=== PATIENT | female | born 1940 | race Caucasian/White ===

== ENCOUNTER 2023-05-27 07:34 | Outpatient (AMB) | payer OTHER, SELFPAY ==
--- NOTE | 2023-05-27 07:51 | A.OFFPC_ITS ---
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 Required: No Accompanied by: Self / Same As Patient Allergies penicillin G Allergy (Mild, Verified 05/27/23 07:55) mouth sores Medication List - Last Reconciled 05/27/23 by Yaneth Morataya MD apixaban (Eliquis) 5 mg PO BID atorvastatin (Lipitor) 40 mg PO BEDTIME cholecalciferol (vitamin D3) 50 mcg PO DAILY sertraline 100 mg PO DAILY verapamil ER 180 mg PO DAILY Tobacco use date assessed: 05/27/23 Fall risk assessment: 2 + Falls in past year Last assessed Fall Risk: 05/27/23 Dental Screening Dental Screen Date: 05/27/23 Did you have a dental visit in the last 12 months?: Yes Did you have a dental problem in the last 6 months where you did not have access to dental care?: No Was dental information given to patient?: Patient has dentist HPI NPV-requesting phy HPI Details Pt presents for NPE. Past medical history includes paroxysmal AFib and hyperlipidemia. Patient moved from [place] a year ago. She was recently hospitalized at [facility] for noncardiac chest pain with negative cardiac workup. Patient complains bilateral knee pain and stiffness and poor balance. She started taking classes at [employer] to improve her balance. [facility] Surgical History (Updated 05/27/23 @ 08:13 by Yaneth Morataya MD) S/P cataract surgery Family History Father No problems noted. Mother No problems noted. Social History Household Members Other:: , lives alone, 2 daughters (in [facility]), Housing: House Alcohol intake: current Alcohol intake frequency: former alcohol drinker Patient Tobacco Use Status: Former Tobacco user Quit Date: 17 yrs ago Years Smoked: 40 e-Cigarette/Vaping Use: Never Used service: No Current occupational status: retired Current occupational exposures/hazards: No Cognitive needs: No Hearing needs: No Vision needs: Yes Questionnaire PHQ-9 Over the last 2 weeks, how often have you been bothered by any of the following problems? 1. Little interest or pleasure in doing things: not at all 2. Feeling down, depressed, or hopeless: not at all 3. Trouble falling or staying asleep, or sleeping too much: not at all 4. Feeling tired or having little energy: not at all 5. Poor appetite or overeating: several days 6. Feeling bad about yourself - or that you are a failure or have let yourself or your family down: not at all 7. Trouble concentrating on things, such as reading the newspaper or watching television: not at all 8. Moving or speaking so slowly that other people could have noticed. Or the opposite - being so fidgety or restless that you have been moving around a lot more than usual: not at all 9. Thoughts that you would be better off or of hurting yourself in some way: not at all Total score: 1 Depression Screening Interpretation: Negative Depression Screening Done: Yes Source: Developed by Drs. Ramin Avina, Lotus Huynh, Sanchez Delaney and colleagues, with an educational aicha from [employer]. Thrive Questionnaire Date Thrive assessed: 05/27/23 I am a: Patient What is your living situation today?: I have a steady place to live Within the past 12 months, did the food you bought not last and you didn't have the money to get more?: Never true Within the past 12 months, did you worry whether your food would run out before you got money to buy more?: Never true Do you have trouble paying for medicines?: No Do you have trouble getting transportation to medical appointments?: No Do you have trouble paying your heating and electricity bill?: No Do you have trouble taking care of your child, family member or friend?: No Do you have trouble with day-to-day activities such as bathing, preparing meals, shopping, managing finances, etc.?: No Are you currently unemployed and looking for a job?: No Are you interested in more education?: No Please select the resources that you would like help with: None Currently or been in a relationship where the following occur: no concerns reported AUDIT C Alcohol Use Questionnaire (AUDIT-C) 1. How often do you have a drink containing alcohol?: Never 3. How often do you have six or more drinks on one occasion?: Never Total Score: 0 ROMMEL-7 AMB Questionnaire ROMMEL-7 Date ROMMEL - 7 assessed: 05/27/23 Feeling nervous, anxious, or on edge: 0 = Not at all Not being able to stop or control worryin = Not at all Worrying too much about different things: 0 = Not at all Trouble relaxin = Not at all Being so restless that it is hard to sit still: 0 = Not at all Becoming easily annoyed or irritable: 0 = Not at all Feeling afraid as if something awful might happen: 0 = Not at all Total ROMMEL-7 score (0-4 normal; 5-9 mild; 10-14 moderate; 15-21 severe): 0 Source: Developed by Drs. Ramin Avina, Lotus Huynh, Sanchez Delaney and colleagues, with an educational aicha from [employer]. Review of Systems Const All systems reviewed & are unremarkable except as noted in HPI and below Reports no additional complaints Eyes Reports no additional complaints ENT Reports no additional complaints Card Reports no additional complaints Resp Reports no additional complaints GI Reports no additional complaints Reports no additional complaints Physical exam (Primary Care) Vital Signs: Last Vital Signs Pulse 84 05/27/23 07:53 BP 132/76 05/27/23 07:53 Pulse Ox 98 05/27/23 07:53 Oxygen Delivery Method Room Air 05/27/23 07:53 BMI result Body Mass Index 27.3 Tobacco/Smoking Status: Tobacco use Status Tobacco use date assessed 05/27/23 05/27/23 08:00 Patient Tobacco Use Status Former Tobacco user 05/27/23 08:23 e-Cigarette/Vaping Use Never Used 05/27/23 08:23 PHQ-9: PHQ-9 Score PHQ-9: Total score 1 05/27/23 08:50 Depression Screening Interpretation: Negative Thrive Assessment: Date of Thrive Assessment Date Thrive assessed 05/27/23 05/27/23 08:50 Currently or been in a relationship where the following occur: no concerns reported Const General: no acute distress HENMT Head: Yes normal to inspection Ears: hearing grossly normal bilaterally Face and sinus: Yes normal facial exam Mouth: Normal oral and palatal mucosa present Throat: Yes posterior oropharynx normal Eyes General: appearance normal, both eyes and all related structures Neck Neck: Yes no lymphadenopathy and Yes supple Resp Effort & Inspection: normal respiratory effort Auscultation: clear to auscultation bilaterally Cardio Rhythm: regular rhythm Heart sounds: S1 normal heart sound present and S2 normal heart sound present GI Inspection: Yes normal to inspection Palpation (GI): Soft to palpation Percussion: Yes normal to percussion Auscultation: normal bowel sounds Neuro General: CN's II-XI intact bilaterally Motor exam (neuro): 5/5 motor strength present throughout Coordination: eusaeh-ot-oazu test normal Romberg Test: Negative Extrem Other: Slightly decreased range of motion both knees, Assessment and Plan Assessment & Plan (1) A-fib: Comment: x 30 yrs Code(s): I48.91 - Unspecified atrial fibrillation Plan: Continue Eliquis and verapamil, obtain records from recent admission to [facility] (2) Hx of colonoscopy: Comment: in [place] 2021 normal Code(s): Z98.890 - Other specified postprocedural states (3) Hx of mammogram: Comment: 2022 Code(s): Z92.89 - Personal history of other medical treatment (4) Hyperlipidemia: Code(s): E78.5 - Hyperlipidemia, unspecified Plan: Continue statin, patient will obtain records from her previous PCP where she had a fasting blood work done. (5) Annual physical exam: Comment: nl DEXA 2021, by pt Code(s): Z00.00 - Encounter for general adult medical examination without abnormal findings Plan: Well-balanced diet , increase regular physical activity and continue balanced exercises in [facility] discussed. Follow-up in 2 months Medications: New atorvastatin (Lipitor) 40 mg PO BEDTIME 90 tabs 3RF Coding Level of Care Code New Pt Prev Care >65yr (51981) Diagnoses A-fib I48.91 Hx of colonoscopy Z98.890 Hx of mammogram Z92.89 Hyperlipidemia E78.5 Annual physical exam Z00.00
[2023-05-27 07:53] VITALS: BP 132/76; PULSE 84; O2SAT 98; BMI 27.3
== END 2023-05-27 09:30 | disposition home or self-care (01) ==
PROVIDERS: Visit Provider Internal Medicine
DX: I48.91 Unspecified atrial fibrillation (principal); Z98.890 Other specified postprocedural states; Z92.89 Personal history of other medical treatment; E78.5 Hyperlipidemia, unspecified; Z00.00 Encounter for general adult medical examination without abnormal findings
CPT/HCPCS: 99387

== ENCOUNTER 2023-07-28 11:53 | Outpatient (AMB) | payer MEDICARE, SELFPAY ==
--- NOTE | 2023-07-28 11:56 | MHC.PC.OV ---
Vital Signs 07/28/23 11:57 Height 5 ft 4 in Weight 158 lb BMI 27.1 BP 130/66 Blood Pressure Location Lt brachial Position Sitting Pulse 60 Pulse Source Pulse Oximeter Pulse Oximetry (%) 96 Oxygen Delivery Method Room Air Intake Visit Reasons: 2 month follow up Intake Note: Pt is here today for 2 months follow up visit. Allergies penicillin G Allergy (Mild, Verified 07/28/23 11:58) mouth sores Medication List - Last Reconciled 07/28/23 by Yaneth Morataya MD apixaban (Eliquis) 5 mg PO BID atorvastatin (Lipitor) 40 mg PO BEDTIME cholecalciferol (vitamin D3) 50 mcg PO DAILY sertraline 100 mg PO DAILY verapamil ER 180 mg PO DAILY Tobacco use date assessed: 07/28/23 Fall risk assessment: 2 + Falls in past year Last assessed Fall Risk: 07/28/23 Dental Screening Dental Screen Date: 07/28/23 Did you have a dental visit in the last 12 months?: Yes Did you have a dental problem in the last 6 months where you did not have access to dental care?: No Was dental information given to patient?: Patient has dentist HPI 2 month follow up HPI Details Patient presents for the follow-up of hypertension paroxysmal AFib hyperlipidemia chronic anxiety stable on current medications. Patient complains of bilateral knee pain right more than left worse when walking longer distance. Patient denies any injury or joint swelling. [facility] Surgical History (Updated 05/27/23 @ 08:13 by Yaneth Morataya MD) S/P cataract surgery Family History Father No problems noted. Mother No problems noted. Social History Household Members Other:: , lives alone, 2 daughters (in [facility]), Housing: House Alcohol intake: current Alcohol intake frequency: former alcohol drinker Patient Tobacco Use Status: Former Tobacco user Quit Date: 17 yrs ago Years Smoked: 40 e-Cigarette/Vaping Use: Never Used service: No Current occupational status: retired Current occupational exposures/hazards: No Cognitive needs: No Hearing needs: No Vision needs: Yes Questionnaire Thrive Questionnaire Date Thrive assessed: 05/27/23 ROMMEL-7 AMB Questionnaire ROMMEL-7 Date ROMMEL - 7 assessed: 05/27/23 Source: Developed by DrsBogdan Avina, Lotus Huynh, Sanchez Delaney and colleagues, with an educational aicha from [employer]. Review of Systems Const All systems reviewed & are unremarkable except as noted in HPI and below Reports no additional complaints Eyes Reports no additional complaints ENT Reports no additional complaints Card Reports no additional complaints Resp Reports no additional complaints GI Reports no additional complaints Reports no additional complaints Physical exam (Primary Care) Vital Signs: Last Vital Signs Pulse 60 07/28/23 11:57 BP 130/66 07/28/23 11:57 Pulse Ox 96 07/28/23 11:57 Oxygen Delivery Method Room Air 07/28/23 11:57 BMI result Body Mass Index 27.1 Tobacco/Smoking Status: Tobacco use Status Tobacco use date assessed 07/28/23 07/28/23 12:00 Patient Tobacco Use Status Former Tobacco user 07/28/23 12:00 e-Cigarette/Vaping Use Never Used 07/28/23 12:00 Thrive Assessment: Date of Thrive Assessment Date Thrive assessed 05/27/23 07/28/23 12:00 Const General: no acute distress HENMT Head: Yes normal to inspection General nose exam: Normal external nose present Eyes General: appearance normal, both eyes and all related structures Neck Neck: Yes no lymphadenopathy and Yes supple Resp Effort & Inspection: normal respiratory effort Auscultation: clear to auscultation bilaterally Cardio Rhythm: regular rhythm Heart sounds: S1 normal heart sound present and S2 normal heart sound present GI Inspection: Yes normal to inspection Palpation (GI): Soft to palpation Extrem Other: There is crepitus and decreased range of motion in both knees right more than left, no joint swelling or tenderness General: Yes no clubbing, cyanosis or edema Assessment and Plan Assessment & Plan (1) Hyperlipidemia: Code(s): E78.5 - Hyperlipidemia, unspecified Plan: Continue statin (2) A-fib: Comment: x 30 yrs, hospitalized at [facility] 12/05 and f/u with [facility] 01/05, had Echo and Holter Code(s): I48.91 - Unspecified atrial fibrillation Plan: Continue Eliquis and verapamil follow-up with Cardiology (3) HTN (hypertension): Code(s): I10 - Essential (primary) hypertension Plan: Continue verapamil (4) Knee pain, bilateral: Code(s): M25.561 - Pain in right knee; M25.562 - Pain in left knee Plan: Check x-rays of both knee patient will continue exercise at [facility] Orders: Orders Complete Blood Count Auto Diff Today E78.5 - Hyperlipidemia, unspecified, I10 - Essential (primary) hypertension, I48.91 - Unspecified atrial fibrillation Lipid Panel Today E78.5 - Hyperlipidemia, unspecified, I10 - Essential (primary) hypertension, I48.91 - Unspecified atrial fibrillation TSH reflex Free T4 Today E78.5 - Hyperlipidemia, unspecified, I10 - Essential (primary) hypertension, I48.91 - Unspecified atrial fibrillation Vitamin D 25-OH Total Today E78.5 - Hyperlipidemia, unspecified, I10 - Essential (primary) hypertension, I48.91 - Unspecified atrial fibrillation XR knee standing BI Today M25.561 - Pain in right knee, M25.562 - Pain in left knee Comprehensive [place]. Panel Fast Today E78.5 - Hyperlipidemia, unspecified, I10 - Essential (primary) hypertension, I48.91 - Unspecified atrial fibrillation Medications: New nystatin 1 appl topical BID 60 grams 2RF Coding Level of Care Code Est Pt Level 4 (83504) Diagnoses Hyperlipidemia E78.5 A-fib I48.91 HTN (hypertension) I10 Knee pain, bilateral M25.561; M25.562
[2023-07-28 11:57] VITALS: BP 130/66; PULSE 60; O2SAT 96; BMI 27.1
== END 2023-07-28 13:08 | disposition home or self-care (01) ==
PROVIDERS: PCP Internal Medicine; Visit Provider Internal Medicine
DX: E78.5 Hyperlipidemia, unspecified (principal); I48.91 Unspecified atrial fibrillation; I10 Essential (primary) hypertension; M25.561 Pain in right knee; M25.562 Pain in left knee
CPT/HCPCS: 99214

== ENCOUNTER 2023-08-04 07:15 | Outpatient (REF) | payer MEDICARE, SELFPAY ==
[2023-08-04 11:00] LABS: MANUAL DIFF FLAG NO
[2023-08-04 11:22] LABS: Basophils Percent Auto 0.8 % (0-2); Eosinophils Absolute Auto 0.3 X10*3/uL (0.0-0.4); Eosinophils Percent Auto 6.8 % (0-4); Hematocrit 44.8 % (37.0-47.0); Hemoglobin 14.4 g/dl (12.0-16.0); Imm Gran Abs Auto 0.01 X10*3/uL (0.00-0.03); Imm Gran Pct Auto 0.3 % (0.0-0.4); Lymphocytes Absolute Auto 1.3 X10*3/uL (1.2-4.9); Lymphocytes Percent Auto 34.1 % (20-40); Mean Corpuscular HGB Conc 32.1 g/dl (31.0-35.0); Mean Corpuscular Hemoglobin 29.1 pg (27.0-33.0); Mean Corpuscular Volume 90.7 fL (80.0-98.0); Monocytes Absolute Auto 0.4 X10*3/uL (0.1-1.2); Monocytes Percent Auto 11.1 % (2-11); Neutrophils Absolute Auto 1.7 x10*3/uL (2.0-8.3); Neutrophils Percent Auto 46.9 % (45-73); Platelet Count 167 X10*3/uL (160-400); Red Blood Count 4.94 X10*6/uL (4.20-5.50); Red Cell Distribution Width 15.2 % (11.0-16.0); White Blood Count 3.7 X10*3/uL (4.8-10.8)
[2023-08-04 11:56] LABS: Alanine Aminotransferase 21 U/L (0-31); Albumin Level 4.1 g/dL (3.5-5.0); Alkaline Phosphatase 101 U/L (39-117); Anion Gap 13 (12-20); Aspartate Amino Transferase 21 U/L (5-31); Bilirubin Total 0.5 mg/dL (0.0-1.0); Blood Urea Nitrogen 21 mg/dL (9-16); Calcium 9.3 mg/dL (8.4-10.2); Carbon Dioxide 26 mmol/L (22-29); Chloride 107 mmol/L (96-108); Cholesterol 178 mg/dL (<200); Estimated Glomerular Filt Rate > 60; Glucose Fasting 83 mg/dL (60-99); HDL Cholesterol 57 mg/dL (>40); LDL Cholesterol Calculated 100 mg/dL (<100); Potassium 4.3 mmol/L (3.3-5.1); Sodium 142 mmol/L (135-145); TSH reflex Free T4 3.21 uIU/mL (0.32-4.0); Total Protein 7.6 g/dL (6.5-8.0); Triglycerides 108 mg/dL (<150); Vitamin D 25-OH Total 31.5 ng/mL (>30)
== END 2023-08-04 07:16 | disposition home or self-care (01) ==
LOC: HO.HMGCLDS 07:15
PROVIDERS: PCP Internal Medicine; Visit Provider Internal Medicine
DX: I48.91 Unspecified atrial fibrillation (principal); I10 Essential (primary) hypertension; E78.5 Hyperlipidemia, unspecified
CPT/HCPCS: 36415; 80053; 80061; 82306; 84443; 85025

== ENCOUNTER 2023-08-05 10:49 | Outpatient (REF) | payer MEDICARE, SELFPAY ==
--- NOTE | ~2023-08-05 | XR_ITS ---
EXAMINATION: XR KNEE AP STANDING CLINICAL INFORMATION: Pain in right knee. COMPARISON: None available. TECHNIQUE: AP bilateral standing view of the knees was obtained. FINDINGS: Lbqjrlsr-ar-jgwrga narrowing of the medial compartments of the bilateral knees, right greater than left. Small bilateral medial marginal osteophytes. The bones are diffusely demineralized. XR/XR knee standing BI IMPRESSION: Iuykqhtt-aj-kgzfmc narrowing of the medial compartments of the bilateral knees, right greater than left.
== END 2023-08-05 10:50 | disposition home or self-care (01) ==
LOC: HO.HMGCX 10:49
PROVIDERS: PCP Internal Medicine; Visit Provider Internal Medicine
DX: M25.561 Pain in right knee (principal); M25.562 Pain in left knee
CPT/HCPCS: 73565

== ENCOUNTER 2023-11-28 11:55 | Outpatient (AMB) | payer MEDICARE, SELFPAY ==
--- NOTE | 2023-11-28 12:23 | MHC.PC.OV ---
Vital Signs 11/28/23 12:26 Height 5 ft 4 in Weight 159 lb BMI 27.3 BP 124/82 Blood Pressure Location Lt brachial Position Sitting Pulse 67 Pulse Source Pulse Oximeter Pulse Oximetry (%) 95 Oxygen Delivery Method Room Air Intake Visit Reasons: 4 month follow up Intake Note: pt is here for her 4 month f/u Allergies penicillin G Allergy (Mild, Verified 11/28/23 12:24) mouth sores Medication List - Last Reconciled 11/28/23 by Yaneth Morataya MD apixaban (Eliquis) 5 mg PO BID atorvastatin (Lipitor) 40 mg PO BEDTIME cholecalciferol (vitamin D3) 50 mcg PO DAILY nystatin 1 appl topical BID sertraline 100 mg PO DAILY verapamil ER 180 mg PO DAILY Tobacco use date assessed: 11/28/23 Fall risk assessment: No Falls in past year Last assessed Fall Risk: 11/28/23 HPI 4 month follow up HPI Details Pt presents for f/u Afib, hyperlipid, chronic anxiety, stable on meds. PFSH Surgical History S/P cataract surgery Family History Father No problems noted. Mother No problems noted. Social History Household Members Other:: , lives alone, 2 daughters (in [facility]), Housing: House Alcohol intake: current Alcohol intake frequency: former alcohol drinker Patient Tobacco Use Status: Former Tobacco user Years Smoked: 40 e-Cigarette/Vaping Use: Never Used service: No Current occupational status: retired Current occupational exposures/hazards: No Cognitive needs: No Hearing needs: No Vision needs: Yes Questionnaire PHQ-9 Over the last 2 weeks, how often have you been bothered by any of the following problems? 1. Little interest or pleasure in doing things: not at all 2. Feeling down, depressed, or hopeless: not at all 3. Trouble falling or staying asleep, or sleeping too much: not at all 4. Feeling tired or having little energy: not at all 5. Poor appetite or overeating: not at all 6. Feeling bad about yourself - or that you are a failure or have let yourself or your family down: not at all 7. Trouble concentrating on things, such as reading the newspaper or watching television: not at all 8. Moving or speaking so slowly that other people could have noticed. Or the opposite - being so fidgety or restless that you have been moving around a lot more than usual: not at all 9. Thoughts that you would be better off or of hurting yourself in some way: not at all Total score: 0 Depression Screening Interpretation: Negative Depression Screening Done: Yes 22457 - PHQ-9 Billing: Yes Source: Developed by Drs. Ramin Avina, Lotus Huynh, Sanchez Delaney and colleagues, with an educational aicha from [employer]. Thrive Questionnaire Date Thrive assessed: 11/28/23 I am a: Patient What is your living situation today?: I have a steady place to live Within the past 12 months, did the food you bought not last and you didn't have the money to get more?: Never true Within the past 12 months, did you worry whether your food would run out before you got money to buy more?: Never true Do you have trouble paying for medicines?: No Do you have trouble getting transportation to medical appointments?: No Do you have trouble paying your heating and electricity bill?: No Do you have trouble taking care of your child, family member or friend?: No Do you have trouble with day-to-day activities such as bathing, preparing meals, shopping, managing finances, etc.?: No Are you currently unemployed and looking for a job?: No Are you interested in more education?: No Please select the resources that you would like help with: Housing/Penitentiary Currently or been in a relationship where the following occur: No concerns reported THRIVE Score: 0 AUDIT C Alcohol Use Questionnaire (AUDIT-C) 1. How often do you have a drink containing alcohol?: Never Total Score: 0 Score Reviewed/Action Taken: No ROMMEL-7 AMB Questionnaire ROMMEL-7 Date ROMMEL - 7 assessed: 11/28/23 Feeling nervous, anxious, or on edge: 0 = Not at all Not being able to stop or control worryin = Not at all Worrying too much about different things: 0 = Not at all Trouble relaxin = Not at all Being so restless that it is hard to sit still: 0 = Not at all Becoming easily annoyed or irritable: 0 = Not at all Feeling afraid as if something awful might happen: 0 = Not at all Total ROMMEL-7 score (0-4 normal; 5-9 mild; 10-14 moderate; 15-21 severe): 0 Source: Developed by Drs. Ramin Avina, Lotus Huynh, Sanchez Delaney and colleagues, with an educational aicha from [employer]. ROMMEL-7 Assessment Billing ROMMEL-7 Assessment Tool: ROMMEL-7 Assessment 07289 Review of Systems Const All systems reviewed & are unremarkable except as noted in HPI and below Eyes Reports no additional complaints ENT Reports no additional complaints Card Reports no additional complaints Resp Reports no additional complaints GI Reports no additional complaints Physical exam (Primary Care) Vital Signs: Last Vital Signs Pulse 67 11/28/23 12:26 BP 124/82 11/28/23 12:26 Pulse Ox 95 11/28/23 12:26 Oxygen Delivery Method Room Air 11/28/23 12:26 BMI result Body Mass Index 27.3 Tobacco/Smoking Status: Tobacco use Status Tobacco use date assessed 11/28/23 11/28/23 12:29 Patient Tobacco Use Status Former Tobacco user 11/28/23 12:29 e-Cigarette/Vaping Use Never Used 11/28/23 12:29 PHQ-9: PHQ-9 Score PHQ-9: Total score 0 11/28/23 12:29 Depression Screening Interpretation: Negative Thrive Assessment: Date of Thrive Assessment Date Thrive assessed 11/28/23 11/28/23 12:29 Currently or been in a relationship where the following occur: No concerns reported Const General: no acute distress HENMT Head: Yes normal to inspection Face and sinus: Yes normal facial exam Eyes General: appearance normal, both eyes and all related structures Neck Neck: Yes no lymphadenopathy and Yes supple Resp Effort & Inspection: normal respiratory effort Auscultation: clear to auscultation bilaterally Cardio Rhythm: regular rhythm Heart sounds: S1 normal heart sound present and S2 normal heart sound present GI Inspection: Yes normal to inspection Palpation (GI): Soft to palpation Auscultation: normal bowel sounds Assessment and Plan Assessment & Plan (1) Knee pain, bilateral: Comment: XR CONSISTENT WITH MODERATE TO ADVANCED OSTEOARTHRITIS RIGHT MORE THAN LEFT Code(s): M25.561 - Pain in right knee; M25.562 - Pain in left knee Plan: Patient will continue regular exercise (2) HTN (hypertension): Code(s): I10 - Essential (primary) hypertension Plan: Continue current medications (3) Hyperlipidemia: Code(s): E78.5 - Hyperlipidemia, unspecified Plan: Continue statin (4) A-fib: Comment: x 30 yrs, hospitalized at [facility] 12/05 and f/u with [facility] 01/05, had Echo and Holter Code(s): I48.91 - Unspecified atrial fibrillation (5) Vitamin D deficiency: Code(s): E55.9 - Vitamin D deficiency, unspecified Orders: Orders Lipid Panel 6 Months E55.9 - Vitamin D deficiency, unspecified, E78.5 - Hyperlipidemia, unspecified, I10 - Essential (primary) hypertension, I48.91 - Unspecified atrial fibrillation [place]. Panel Fast 6 Months E55.9 - Vitamin D deficiency, unspecified, E78.5 - Hyperlipidemia, unspecified, I10 - Essential (primary) hypertension, I48.91 - Unspecified atrial fibrillation Complete Blood Count Auto Diff 6 Months E55.9 - Vitamin D deficiency, unspecified, E78.5 - Hyperlipidemia, unspecified, I10 - Essential (primary) hypertension, I48.91 - Unspecified atrial fibrillation TSH reflex Free T4 6 Months E55.9 - Vitamin D deficiency, unspecified, E78.5 - Hyperlipidemia, unspecified, I10 - Essential (primary) hypertension, I48.91 - Unspecified atrial fibrillation Vitamin D 25-OH (D2 and D3) 6 Months E55.9 - Vitamin D deficiency, unspecified, E78.5 - Hyperlipidemia, unspecified, I10 - Essential (primary) hypertension, I48.91 - Unspecified atrial fibrillation Medications: New apixaban (Eliquis) 5 mg PO BID 180 tabs 3RF verapamil ER 180 mg PO DAILY 90 tabs 3RF Refilled sertraline 100 mg PO DAILY 90 tabs 3RF Coding Level of Care Code Est Pt Level 4 (35051) Diagnoses Knee pain, bilateral M25.561; M25.562 HTN (hypertension) I10 Hyperlipidemia E78.5 A-fib I48.91 Vitamin D deficiency E55.9 Additional Codes ROMMEL-7 Assessment Billing - ROMMEL-7 Assessment Tool: ROMMEL-7 Assessment 59529 ([id number])
[2023-11-28 12:26] VITALS: BP 124/82; PULSE 67; O2SAT 95; BMI 27.3
== END 2023-11-28 13:08 | disposition home or self-care (01) ==
PROVIDERS: PCP Internal Medicine; Visit Provider Internal Medicine
DX: M25.561 Pain in right knee (principal); I48.91 Unspecified atrial fibrillation; M25.562 Pain in left knee; I10 Essential (primary) hypertension; E78.5 Hyperlipidemia, unspecified; E55.9 Vitamin D deficiency, unspecified
CPT/HCPCS: 99214

== ENCOUNTER 2024-06-25 06:59 | Outpatient (REF) | payer MEDICARE, SELFPAY ==
--- OUTSIDE RECORDS SUMMARY | 2024-06-25 07:02 | XMS_ITS ---
Author Organization [facility] Address [address] [place] [address] Care Team Providers Care Installer Technician Name Role Phone Yaneth Morataya MD Primary Care Provider Claudette Chi [phone] REASON FOR VISIT cx 11/24 Encounters Encounter Location Date Provider Diagnosis [facility] [address] [place] [address] 11/22/2023 Claudette Madera Plan Of Treatment No Information Progress Notes * Gin GAONA RDOB: [birth year] (83 yo F)Acc No.[id number]:11/22/2023 Patient:?Gin Gaona :1940???Age:83 Y???Sex:Female [address]:[address] [place] [address], [id number] * true * Date:? Generated for Angeli dev/Brenda/eTransmitting on:?06/25/2024 07:01 AM EST
--- OUTSIDE RECORDS SUMMARY | 2024-06-25 07:02 | XMS_ITS ---
Author Organization [facility] [place] Address [address] [facility] [place] [address] Care Team Providers Care Skiver Box Toe Name Role Phone Yaneth Morataya MD Primary Care Provider Claudette Chi Unavailable [phone] Allergies Allergen (clinical drug ingredient) Drug/Non Drug Allergy documented on EMR Reaction Allergy Type Onset Date Status Penicillin sores in mouth Drug Allergy A ctive REASON FOR VISIT Pcp- 08/06, Painful nail(s) aggrevated by shoes causing difficulty standing/walking, Skin problem(s) Medications Medication SIG (Take, Route, Frequency, Duration) Notes Start Date End Date Status Vitamin D 50 MCG (1999) 1 tablet Orally Once a day Active Verapamil HCl 180 mg Active Doxycycline Monohydrate 100 MG 1 capsule Orally every 12 hrs for 7 days 12/07/2022 Not-Taking Atenolol 50 MG 1 tablet Orally Once a day Not-Taking Cipro 500 MG 1 tablet Orally ever y 12 hrs for 5 days 12/13/2022 Not-Taking Cranberry Extract 450 mg Ac tive Atorvastatin Calcium 40 MG 1 tablet Orally Once a day Active Sertraline HCl 100 MG 1 tablet Orally On ce a day Active eliquis 5 mg X2 a day Active Social History Tobacco Use: Social History Observation Description Date Details (start date - stop date) Former Smoker NA - NA Tobacco Use/Smoking Question Answer Notes Are you a: former smoker Additional Findings: Tobacco Non-User Current no n-smoker Alcohol Screen Question Answer Notes Did you have a drink containing alcohol in the p ast year? No Points 0 Interpretation Negative Tobacco use other than smoking: Question Answer Notes Are you an other tobacco user? No Vital Signs Height 5 ft 4 in in 08/26/2023 Weight 160 lbs 08/26/2023 BMI 27.46 kg/m2 08/26/2023 Blood pressure systolic 130 mm Hg 08/26/19 24 Blood pressure diastolic 70 mm Hg 024 Encounters Encounter Location Date Provider Diagnosis [facility] [place] [address] [place] [address] 08/26/2023 Claudette Madera Tinea unguium B35.1 ; Tinea pedis of both feet B35.3 ; Pain in right toe(s) M79.674 and Pain in left toe(s) M79.675 Assessments Encounter Date Diagnosis (ICD Code) Assessment Notes Treatment Notes Treatment Clinical Notes Section Notes 08/26/2023 Tinea unguium (ICD-10 - B35.1) 08/26/2023 Tinea pedis of both feet (ICD-10 - B35.3) 08/26/2023 Pain in right toe(s) (ICD-10 - M79.674) 08/26/2023 Pain in left toe(s) (ICD-10 - M79.675) Plan Of Treatment Next Appt Details Follow Up: 3 Months, Reason: Procedure Notes * Category Sub-Category Detail Notes Debride Nail 6-10 Nail debridement Nail debridem ent performed extensively to reduce/remove overall nail length and girth, subungual debris, and necrotic tissue, by manual and electrical means with use of a nail nipper and/or dremel, to more viable healthy nail plate or bed tissue 6-10. Silver nitrate used for any petechial bleeding as necessary. Patient chooses, no pharmaceutical tx (29442) Progress Notes * Gin GAONA RDOB: [birth year] (82 yo F)Acc No.[id number]:08/26/2023 Progress Note Patient:?Gin Gaona Provider:?Claudette Madera DPM :1940???Age:82 Y???Sex:Female D ate:08/26/2023 Address:[address] [place], [place] [id number] Pcp:Yaneth Morataya MD Subjective: * Chief Complaints: * ???Pcp- 08/06 Painful nail(s ) aggrevated by shoes causing difficulty standing/walkingSkin problem(s) * HPI: ???Painful Nails:?Pt States Last PCP Visit:?Date:?08/03/2023 ???Skin problems:?Nature:?redness scaling.?Location:?B/L .?Course:?worse.?Treatments:?OTC lotion.? * ROS:?General/Constitutional:?Nausea?denies, denies, denies.?Vomiting?denies, denies, denies.?Hunger Thirst?denies, denies, denies.?Loss appetite?denies, denies, denies.?Chills?denies, denies, denies.?Fatigue?denies, denies, denies.?Fever?denies, denies, denies.?Night Sweats?denies, denies, denies.?Unexplained weight loss?denies, denies, denies.?Unexplained weight gain?denies, denies, denies.?HEENTM:?Dentures?admits, admits, admits.?Dizziness?denies, denies, denies.?Glasses/contacts?admits, admits, admits.?Retinopathy?denies, denies, denies.?Blurred/double vision?denies, denies, denies.?TMJ?denies, denies, denies.?Discharge/drainage?denies, denies, denies.?Implants?denies, denies, denies.?Sore throat?denies, denies, denies.?Dental implants?denies, denies, denies.?Hard of hearing ?denies, denies, denies.?Difficulty chewing/swallowing/speaking denies, denies, denies.?Nose bleeds?denies, denies, denies.?Sore mouth?denies, denies, denies.?Respiratory:?On Oxygen?denies, denies, denies.?Pneumonia/pleurisy?denies, denies, denies.?Bronchitis?denies, denies, denies.?Emphysema?denies, denies, denies.?Coughing?denies, denies, denies.?Cough blood?denies, denies, denies.?Shortness of breath?denies, denies, denies.?Wheezing?denies, denies, denies.?Cardiovascular:?Pacemaker?denies, denies, denies.?MVP?denies, denies, denies.?WPW?denies, denies, denies.?CHF?denies, denies, denies.?Heart attack?denies, denies, denies.?Septal defect?denies, denies, denies.?Rapid beat denies, denies, denies.?Chest pain ?denies, denies, denies.?Atrial Fib.?admits, admits, admits.?Murmur/Palpitations?denies, denies, denies.?Gastrointestinal:?Hemorrhoids?denies, denies, denies.?Stomach/Abdominal pain?denies, denies, denies.?Dark blood stool?denies, denies, denies.?Irritable bowel ?denies, denies, denies.?Constipation?denies, denies, denies.?Diarrhea?denies, denies, denies.?Hematology:?Swelling?admits, denies, denies.?Clots?denies, denies, denies.?Varicose Veins?denies, denies, denies.?Bruising?denies, denies, denies.?Bleeding problem?denies, denies, denies.?Genitourinary:?Blood urine?denies, denies, denies.?Frequent/Painfu/urination/bladder control?admits, admits, admits.?Kidney stones?denies, denies, denies.?Infection (UTI)?denies, denies, denies.?Nephropathy?denies, denies, denies. sex trans dis (STD)?denies, denies, denies.?Prostate?denies, denies, denies.?Musculoskeletal:?Hammertoes?denies, denies, denies.?Bunions?denies, denies, denies.?Back Pain?denies, denies, denies.?Muscle Cramps/ Resting?denies, denies, denies.?Muscle cramps / walking?denies, denies, denies.?Generalized aches and pains?admits, admits, admits.?Weakness?denies, denies, denies.?Integ.:?Cannon?denies, denies, denies.?Scars?denies, denies, denies.?Corns/calluses?denies, denies, denies.?Ingrown nails?denies, denies, denies.?Painful nails?admits,admits,admits.?Open Sores?denies, denies, denies.?Rashes?denies, denies, denies.?Neurologic:?Difficulty sleeping?denies, denies, denies.?Brain disorder?denies, denies, denies.?Numbness?denies, denies, denies.?Balance trouble?denies, denies, denies.?Confusion?denies, denies, denies.?Fainting/blackouts?denies, denies, denies.?Tingling?denies, denies, denies.?Tremors?denies, denies, denies.? * Medical History:? * Surgical History:?cataract s urgery * Hospitalization/Major Diagno stic Procedure:?[facility] potential heart attack 12/05 * Family History:?Mother: dece ased.?Father: , diagnosed with Other malignant neoplasm of unspecified site.?Siblings: brother- cancer, diagnosed with Other malignant neoplasm of unspecified site.? * Social History:?Tobacco Use:?Tobacco Use/Smoking?Are you a:?former smoker ?Additional Findings: Tobacco Non-User?Current non-smoker ?Tobacco use other than smoking?Are you an other tobacco user??No ???Drugs/Alcohol:?Drugs?Have you used drugs other than those for medical reasons in the past 12 months??No ?Alcohol Screen?Did you have a drink containing alcohol in the past year??No ?Points?0 ?Interpretation?Negative ???Miscellaneous:?no Caffeine, Soda very occassionally. ?Children: yes. ?Exercise: yes. ?Home smoke detector use: Bone and class at the [employer],gym. ?Marital status: single, . 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 * Medications:?TakingAtorvasta tin Calcium 40 MG Tablet 1 tablet Orally Once a dayCranberry Extract , Notes: 450 mgeliquis 5 mg Tablet , Notes: X2 a daySertraline HCl 100 MG Tablet 1 tablet Orally Once a dayVerapamil HCl , Notes: 180 mgVitamin D 50 MCG (1999) Tablet 1 tablet Orally Once a dayTaking Atorvastatin Calcium 40 MG Tablet 1 tablet Orally Once a dayTaking Cranberry Extract , Notes: 450 mgTaking eliquis 5 mg Tablet , Notes: X2 a dayTaking Sertraline HCl 100 MG Tablet 1 tablet Orally Once a dayTaking Verapamil HCl , Notes: 180 mgTaking Vitamin D 50 MCG (1999) Tablet 1 tablet Orally Once a dayNot-Taking/PRNAtenolol 50 MG Tablet 1 tablet Orally Once a dayDoxycycline Monohydrate 100 MG Capsule 1 capsule Orally every 12 hrsCipro 500 MG Tablet 1 tablet Orally every 12 hrsMedication List reviewed and reconciled with the patientNot-Taking/PRN Atenolol 50 MG Tablet 1 tablet Orally Once a dayNot-Taking/PRN Doxycycline Monohydrate 100 MG Capsule 1 capsule Orally every 12 hrsNot-Taking/PRN Cipro 500 MG Tablet 1 tablet Orally every 12 hrsMedication List reviewed and reconciled with the patient * Allergies:?Penicillin: sores in mouth - Allergyyes[Allergies Verified] Objective: * Vitals:?Ht: 5 ft 4 in, Wt:16 0, BMI:27.46, Shoe size:7, BP:130/70 mm Hg. * Examination: ???General Examination: ?GENERAL APPEARANCE:?Reveals a pleasant, alert, well-nourished, well- developed, well hydrated individual, who demonstrates proper attention to hygiene/body habitus, and is in no acute distress, Pt serves as own?historian for office visit today.?ORIENTED:?person, place, and time.?Neurological: ?SENSORY:?Neurological exam reveals intact sensorium, pain sensation normal, vibration sensation intact, pinprick sensation is normal in the lower extremities, Pt denies, anesthesia, burning, paresthesia, tingling, B/L.?DEEP TENDON REFLEXES:?Achilles, 2/4, B/L.?Vascular: ?DP PULSES:?3/4, B/L.?PT PULSES:?3/4, B/L.?CAPILLARY FILL TIME:?immediate, all digits, B/L.?SKIN TEMPERTURE GRADIENT OF THE LOWER EXTERMITIES:?warm to cool, proximal to distal, B/L.?HAIR GROWTH/TEXTURE/ELASTICITY/TURGOR:?normal, B/L.?PIGMENTATION:?normal, B/L.?EDEMA:?absent, B/L.?Dermatologic: ?SKIN FINDINGS:?Skin shows sign(s) of, erythema, scaling, in a moccasin fashion, no fissure(s) present, B/L.?Orthopedic: ?MUSCLE STRENGTH:?5/5 all groups in a symmetrical fashion , B/L.?Nails: ?NAILS are:?Elongated, overgrown, dystrophic, lytic, greater than 3mm thick, discolored and friable with crumbly malodorous subungual debris, with pain on palpation , 1-5 B/L.? Assessment: * Assessment: 1.?Tinea unguium - B35.1?2.? Tinea pedis of both feet - B35.3 (Primary)?3.?Pain in right toe(s) - M79.674?4.?Pain in left toe(s) - M79.675? Plan: * Treatment: * Procedures:?Debride Nail 6-10:?Nail debridement?Nail debridement performed extensively to reduce/remove overall nail length and girth, subungual debris, and necrotic tissue, by manual and electrical means with use of a nail nipper and/or dremel, to more viable healthy nail plate or bed tissue 6-10. Silver nitrate used for any petechial bleeding as necessary. Patient chooses, no pharmaceutical tx (05080).? * Procedure Codes:?34591 DEBRI DE NAIL, 6 OR MORE, Modifiers: XS * Preventive Medicine:? ??Counseling:?Discussion:?-13: Office or other outpatient visit for the evaluation and management of an established patient, which required a medically appropriate history and/or examination and LOW level of DECISION MAKING for: 1 STABLE ACUTE UNCOMPLICATED PROBLEM, 2 OR MORE MINOR PROBLEMS, OR 1 STABLE CHRONIC PROBLEM, THAT POSE(S) A LOW RISK FOR MORBIDITY/MORTALITY. The visit on the day of the encounter encompassed interpreting the data and educating the patient as to the nature of their condition, treatment options available according to their individual PMH, meds, allergies, and overall health/living conditions, as well as any potential risks or complications that may occur from a failure to adhere to, and participate in, the recommended course of therapy. The discussion included a complete verbal, and/or written explanation of the examination results, any x-rays taken, the proposed diagnosis, and outline of the treatment plan. A schedule for future care needs was also explained. The patient verbalized an understanding of the instructions at this time and agreed to be an active participant in their treatment. If the patient should think of any questions or concerns after the visit, I have encouraged the patient to call the office.?Tinea Pedis:?The patient was counseled on the diagnosis, potential etiologies, and treatment options for their skin condition. We discussed the risks and benefits of each option from performing no treatment, to utilizing OTC topical skin creams, prescription topical creams, customized compounded topical medications, and, if necessary, to utilize oral antifungal therapy. We discussed the advantages and disadvantages of each possible treatment and importance for adherence to all the recommended therapies for optimum success and avoid potential complications such as open sore/infection/possible hospitalization. We discussed the potential effectiveness of each topical preparation as well as each ones possible side effects and/or patient medication interactions if oral therapy is selected. Patient questions re: the advantages and disadvantages of each treatment choice, medication use/dosage, successful outcomes, and application consistency were reviewed and the patient verbalized that all answers were clearly understood. The patient was told they can help alleviate symptoms by utilizing moisture absorbant innersoles with activated charcoal and baking soda, applying antifungal sprays daily, aerating toe web spaces at night by putting cotton or lambs wool between the toes, alternating shoe gear daily if possible so they can dry out, changing socks at least once during the day, wearing well-ventilated shoes or sandals. The patient has decided to apply antifungal skin creams to their feet as directed. Pt has RX from PCP .? * Follow Up:?3 Months * Images: * Sign off status: Completed true * Provider:?Claudette Madera DPM Date:?04/2024 Generated for Joy méndez/Brenda/Sergo on:?06/25/2024 07:02 AM EST History and Physical Notes * HPI (History of Present Illness) Category Sub-Category Detail Notes Category Not es Painful Nails Pt States Last PCP Visit: Date:: 08/03/2023 Skin problems Nature: redness scaling Location: B/L Course: worse Treatments: OTC lotion Examination Category Sub-Category Detail Notes Category Not es Neurological SENSORY: Neurological exa m reveals intact sensorium, pain sensation normal, vibration sensation intact, pinprick sensation is normal in the lower extremities, Pt denies, anesthesia, burning, paresthesia, tingling, B/L DEEP TENDON REFLEXES: Achilles, 2/4, B/L Dermatologic SKIN FINDINGS: Skin shows sign( s) of, erythema, scaling, in a moccasin fashion, no fissure(s) present, B/L Orthopedic MUSCLE STRENGTH: 5/5 all groups in a symm etrical fashion , B/L General Examination GENERAL APPEARANCE: Reveals a pleasant, alert, well- nourished, well-developed, well hydrated individual, who demonstrates proper attention to hygiene/body habitus, and is in no acute distress, Pt serves as own historian for office visit today ORIENTED: person, place, and t tracey Vascular DP PULSES (B): 3/4, B/L PT PULSES (B): 3/4, B/L CAPILLARY FILL TIME: immediate, all digi ts, B/L TEMPERTURE GRADIENT (C): warm to cool, p roximal to distal, B/L TROPHIC CONDITION-TEXTURE/ELASTICITY/TURGOR/HAIR GROWTH (B): normal, B/L EDEMA (C): absent, B/L PIGMENTATION: normal, B/L Nails NAILS are: Elongated, overg rown, dystrophic, lytic, greater than 3mm thick, discolored and friable with crumbly malodorous subungual debris, with pain on palpation , 1-5 B/L
--- OUTSIDE RECORDS SUMMARY | 2024-06-25 07:02 | XMS_ITS | Patient Health Record ---
Author Organization [facility] Address [address] [facility] [place] [address] Care Team Providers Care [place] Name Role Phone Yaneth Morataya MD Primary Care Provider Claudette Chi Unavailable [phone] Allergies Allergen (clinical drug ingredient) Drug/Non Drug Allergy documented on EMR Reaction Allergy Type Onset Date Status Penicillin sores in mouth Drug Allergy A ctive Reason For Referral No Information Medications Medication SIG (Take, Route, Frequency, Duration) Notes Start Date End Date Status Cranberry Extract 450 mg Ac tive Atorvastatin Calcium 40 MG 1 tablet Orally Once a day Active Sertraline HCl 100 MG 1 tablet Orally On ce a day Active eliquis 5 mg X2 a day Active Vitamin D 50 MCG (1999) 1 tablet Orally Once a day Active Verapamil HCl 180 mg Active Doxycycline Monohydrate 100 MG 1 capsule Orally every 12 hrs for 7 days 12/07/2022 Not-Taking Atenolol 50 MG 1 tablet Orally Once a day Not-Taking Cipro 500 MG 1 tablet Orally ever y 12 hrs for 5 days 12/13/2022 Not-Taking Social History Tobacco Use: Social History Observation [...] Are you an other tobacco user? 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 layer exposed (L97.512) Active confirmed Vital Signs Blood pressure diastolic 70 mm Hg 08/26/2023 Height 5 ft 4 in in 08/26/2023 Blood pressure systolic 130 mm Hg 08/26/2023 Weight 160 lbs 08/26/2023 BMI 27.46 kg/m2 08/26/2023 Encounters Encounter Location Date Provider Diagnosis [facility] [address] [address] 08/26/2023 Claudette Madera Tinea unguium B35.1 ; Tinea pedis of both feet B35.3 ; Pain in right toe(s) M79.674 and Pain in left toe(s) M79.[address] [facility] [address] 11/22/2023 Claudette Madera Assessments Encounter Date Diagnosis (ICD Code) Assessment Notes Treatment Notes Treatment Clinical Notes Section Notes 08/26/2023 Tinea unguium (ICD-10 - B35.1) 08/26/2023 Tinea pedis of both feet (ICD-10 - B35.3) 08/26/2023 Pain in right toe(s) (ICD-10 - M79.674) 08/26/2023 Pain in left toe(s) (ICD-10 - M79.675) Plan Of Treatment Pending Test Test Name Order Date X ray : Foot, right 3V 12/07/2022 Insurance Providers Payer Name Payer Address Payer Phone Subscriber Number Group Number Insured Name Patient Relationship to Insured Coverage Start Date Coverage End Date [employer] [address] [place] [phone] [id number] Gin Gaona Self - patient is the insured Medical (General) History Medical History History ICD Code Anxiety Back,Hip,and Knee pain Cataracts A fib High blood pressure Measles Mumps Chicken pox Surgical History Surgery Date(Month/Year) cataract surgery Hospitalization History Reason Date(Month/Year) [facility] potential heart attack 12/05
[2024-06-25 09:58] LABS: MANUAL DIFF FLAG NO
[2024-06-25 10:06] LABS: Basophils Percent Auto 0.5 % (0-2); Eosinophils Absolute Auto 0.3 X10*3/uL (0.0-0.4); Eosinophils Percent Auto 7.4 % (0-4); Hemoglobin 13.8 g/dl (12.0-16.0); Lymphocytes Absolute Auto 1.1 X10*3/uL (1.2-4.9); Mean Corpuscular HGB Conc 31.4 g/dl (31.0-35.0); Mean Corpuscular Hemoglobin 28.8 pg (27.0-33.0); Mean Corpuscular Volume 91.7 fL (80.0-98.0); Monocytes Absolute Auto 0.4 X10*3/uL (0.1-1.2); Neutrophils Absolute Auto 1.8 x10*3/uL (2.0-8.3); Neutrophils Percent Auto 50.1 % (45-73); Platelet Count 160 X10*3/uL (160-400); Red Cell Distribution Width 14.6 % (11.0-16.0); White Blood Count 3.7 X10*3/uL (4.8-10.8)
[2024-06-25 10:31] LABS: Alanine Aminotransferase 24 U/L (0-31); Alkaline Phosphatase 92 U/L (39-117); Anion Gap 9 (12-20); Aspartate Amino Transferase 25 U/L (5-31); Bilirubin Total 0.6 mg/dL (0.0-1.0); Blood Urea Nitrogen 26 mg/dL (9-16); Carbon Dioxide 26 mmol/L (22-29); Chloride 110 mmol/L (96-108); Cholesterol 163 mg/dL (<200); Estimated Glomerular Filt Rate > 60; Glucose Fasting 78 mg/dL (60-99); HDL Cholesterol 55 mg/dL (>40); LDL Cholesterol Calculated 88 mg/dL (<100); Potassium 4.2 mmol/L (3.3-5.1); Sodium 141 mmol/L (135-145); Total Protein 7.8 g/dL (6.5-8.0); Triglycerides 101 mg/dL (<150)
[2024-06-25 10:54] LABS: TSH reflex Free T4 2.01 uIU/mL (0.32-4.0)
[2024-06-29 14:08] LABS: Vitamin D 25-OH, D2 <4 ng/mL; Vitamin D 25-OH, D3 30 ng/mL; Vitamin D 25-OH, Total 30 ng/mL (30-100)
== END 2024-06-25 07:00 | disposition home or self-care (01) ==
LOC: HO.HMGCLDS 06:59
PROVIDERS: PCP Internal Medicine; Visit Provider Internal Medicine
DX: I10 Essential (primary) hypertension (principal); E78.5 Hyperlipidemia, unspecified; I48.91 Unspecified atrial fibrillation; E55.9 Vitamin D deficiency, unspecified
CPT/HCPCS: 36415; 80053; 80061; 82306; 84443; 85025

== ENCOUNTER 2024-06-29 10:04 | Outpatient (AMB) | payer MEDICARE, SELFPAY ==
--- NOTE | 2024-06-29 10:16 | A.OFFPC_ITS ---
Vital Signs 06/29/24 10:17 Height 5 ft 4 in Weight 160 lb BMI 27.5 BP 130/70 Blood Pressure Location Lt brachial Position Sitting Respiration 18 Pulse 76 Pulse Source Pulse Oximeter Temp 98.5 F Temp Source Oral Pulse Oximetry (%) 96 Oxygen Delivery Method Room Air Intake Visit Reasons: Annual PE Intake Note: Pt is here today for a PE. Allergies penicillin G Allergy (Mild, Verified 06/29/24 10:18) mouth sores Medication List - Last Reconciled 06/29/24 by Yaneth Morataya MD apixaban (Eliquis) 5 mg PO BID atorvastatin (Lipitor) 40 mg PO BEDTIME cholecalciferol (vitamin D3) 50 mcg PO DAILY sertraline 100 mg PO DAILY verapamil ER 180 mg PO DAILY Tobacco use date assessed: 06/29/24 Fall risk assessment: 2 + Falls in past year Last assessed Fall Risk: 06/29/24 Dental Screening Dental Screen Date: 06/29/24 Did you have a dental visit in the last 12 months?: Yes Did you have a dental problem in the last 6 months where you did not have access to dental care?: No Was dental information given to patient?: Patient has dentist HPI Annual PE HPI Details Pt presents for PE. PFSH Surgical History S/P cataract surgery Family History Father No problems noted. Mother No problems noted. Social History Household Members Other:: , lives alone, 2 daughters (in [facility]), Housing: House Alcohol intake: current Alcohol intake frequency: former alcohol drinker Patient Tobacco Use Status: Former Tobacco user Years Smoked: 40 e-Cigarette/Vaping Use: Never Used service: No Current occupational status: retired Current occupational exposures/hazards: No Cognitive needs: No Hearing needs: No Vision needs: Yes Questionnaire PHQ-9 Over the last 2 weeks, how often have you been bothered by any of the following problems? 1. Little interest or pleasure in doing things: not at all 2. Feeling down, depressed, or hopeless: not at all 3. Trouble falling or staying asleep, or sleeping too much: not at all 4. Feeling tired or having little energy: not at all 5. Poor appetite or overeating: not at all 6. Feeling bad about yourself - or that you are a failure or have let yourself or your family down: not at all 7. Trouble concentrating on things, such as reading the newspaper or watching television: not at all 8. Moving or speaking so slowly that other people could have noticed. Or the opposite - being so fidgety or restless that you have been moving around a lot more than usual: not at all 9. Thoughts that you would be better off or of hurting yourself in some way: not at all Total score: 0 Depression Screening Interpretation: Negative Depression Screening Done: Yes 83961 - PHQ-9 Billing: Yes Source: Developed by Drs. Ramin Avnia, Lotus Huynh, Sanchez Delaney and colleagues, with an educational aicha from [employer]. Thrive Questionnaire Date Thrive assessed: 06/29/24 I am a: Patient What is your living situation today?: I have a steady place to live Within the past 12 months, did the food you bought not last and you didn't have the money to get more?: Never true Within the past 12 months, did you worry whether your food would run out before you got money to buy more?: Never true Do you have trouble paying for medicines?: No Do you have trouble getting transportation to medical appointments?: Yes Do you have trouble paying your heating and electricity bill?: No Do you have trouble taking care of your child, family member or friend?: No Do you have trouble with day-to-day activities such as bathing, preparing meals, shopping, managing finances, etc.?: No Are you currently unemployed and looking for a job?: No Are you interested in more education?: No Please select the resources that you would like help with: Transportation Currently or been in a relationship where the following occur: No concerns repo rted THRIVE Score: 1 AUDIT C Alcohol Use Questionnaire (AUDIT-C) 1. How often do you have a drink containing alcohol?: Never 3. How often do you have six or more drinks on one occasion?: Never Total Score: 0 ROMMEL-7 AMB Questionnaire ROMMEL-7 Date ROMMEL - 7 assessed: 06/29/24 Feeling nervous, anxious, or on edge: 0 = Not at all Not being able to stop or control worryin = Not at all Worrying too much about different things: 0 = Not at all Trouble relaxin = Not at all Being so restless that it is hard to sit still: 0 = Not at all Becoming easily annoyed or irritable: 0 = Not at all Feeling afraid as if something awful might happen: 0 = Not at all Total ROMMEL-7 score (0-4 normal; 5-9 mild; 10-14 moderate; 15-21 severe): 0 Source: Developed by Drs. Ramin Avina, Lotus Huynh, Sanchez Delaney and colleagues, with an educational aicha from [employer]. ROMMEL-7 Assessment Billing ROMMEL-7 Assessment Tool: ROMMEL-7 Assessment 64566 Review of Systems Const All systems reviewed & are unremarkable except as noted in HPI and below Eyes Reports no additional complaints ENT Reports no additional complaints Card Reports no additional complaints Resp Reports no additional complaints GI Reports no additional complaints Reports no additional complaints Physical exam (Primary Care) Vital Signs: Last Vital Signs Temp 98.5 F 06/29/24 10:17 Pulse 76 06/29/24 10:17 Resp 18 06/29/24 10:17 BP 130/70 06/29/24 10:17 Pulse Ox 96 06/29/24 10:17 Oxygen Delivery Method Room Air 06/29/24 10:17 BMI result Body Mass Index 27.5 Tobacco/Smoking Status: Tobacco use Status Tobacco use date assessed 06/29/24 06/29/24 10:21 Patient Tobacco Use Status Former Tobacco user 06/29/24 10:21 e-Cigarette/Vaping Use Never Used 06/29/24 10:21 PHQ-9: PHQ-9 Score PHQ-9: Total score 0 06/29/24 10:21 Depression Screening Interpretation: Negative Thrive Assessment: Date of Thrive Assessment Date Thrive assessed 06/29/24 06/29/24 10:21 Currently or been in a relationship where the following occur: No concerns reported Const General: no acute distress HENMT Head: Yes normal to inspection Ears: hearing grossly normal bilaterally Face and sinus: Yes normal facial exam Throat: Yes posterior oropharynx normal Eyes General: appearance normal, both eyes and all related structures Neck Neck: Yes no lymphadenopathy and Yes supple Resp Effort & Inspection: normal respiratory effort Auscultation: clear to auscultation bilaterally Cardio Rhythm: regular rhythm Heart sounds: S1 normal heart sound present and S2 normal heart sound present GI Inspection: Yes normal to inspection Palpation (GI): Soft to palpation Percussion: Yes normal to percussion Auscultation: normal bowel sounds Coding Level of Care Code Est Pt Prev Care >65y(19340) Diagnoses A-fib I48.91 Annual physical exam Z00.00 HTN (hypertension) I10 Additional Codes ROMMEL-7 Assessment Billing - ROMMEL-7 Assessment Tool: ROMMEL-7 Assessment 39282 ([id number]) PHQ-9 - 40688 - PHQ-9 Billing: Yes ([id number]) Assessment & Plan Assessment & Plan (1) A-fib: Comment: x 30 yrs, hospitalized at [facility] 12/05 and f/u with [facility] 01/05, had Echo and Holter Code(s): I48.91 - Unspecified atrial fibrillation Category: Medical Plan: Continue verapamil and Eliquis follow-up with cardiology (2) Annual physical exam: Comment: nl DEXA 2022, by pt Code(s): Z00.00 - Encounter for general adult medical examination without abnormal findings Category: Medical Plan: Well-balanced diet regular physical activity discussed with the patient. (3) HTN (hypertension): Code(s): I10 - Essential (primary) hypertension Category: Medical Plan: Continue current medications, follow-up in 6 months
[2024-06-29 10:17] VITALS: BP 130/70; PULSE 76; RESP 18; TEMP 36.9; O2SAT 96; BMI 27.5
--- OUTSIDE RECORDS SUMMARY | 2024-06-29 10:50 | XMS_ITS ---
Author Organization [facility] Address [address] [facility] [place] [address] Care Team Providers Care Cattle Farmer Name Role Phone Yaneth Morataya MD Primary Care Provider Claudette Chi Unavailable [phone] Allergies Allergen (clinical drug ingredient) Drug/Non Drug [...] 024 Encounters Encounter Location Date Provider Diagnosis [facility] [place] [address] [place] [address] 08/26/2023 Claudette Madera Tinea unguium B35.1 ; [...] as necessary. Patient chooses, no pharmaceutical tx (69039) Progress Notes * Gin GAONA RDOB: 2 (82 yo F)Acc No.[id number]:08/26/2023 Progress Note Patient:?Gin Gaona Provider:?Claudette Madera DPM :1940???Age:82 Y???Sex:Female D ate:08/26/2023 Address:[address] [place], [place] [id number] Pcp:Yaneth Morataya MD Subjective: * Chief Complaints: [...] detector use: Bone and class at the [employer]. ?Marital status: single, . 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 * Medications:?TakingAtorvasta tin Calcium 40 [...] as necessary. Patient chooses, no pharmaceutical tx (67899).? * Procedure Codes:?06233 DEBRI DE NAIL, 6 OR MORE, Modifiers: [...] Madera DPM Date:?04/2024 Generated for Joy méndez/Brenda/Sergo on:?06/29/2024 10:50 AM EST History and Physical Notes * [...]
--- OUTSIDE RECORDS SUMMARY | 2024-06-29 10:50 | XMS_ITS ---
Author Organization [facility] Address [address] [place] [address] Care Team Providers Care Seed Cutter Name Role Phone Rafia NIETO, Yaneth Primary Care Provider Claudette Chi [phone] Encounters Encounter Location Date Provider Diagnosis [facility] [address] [place] [address] 11/25/2023 Claudette Madera Plan Of Treatment No Information Progress Notes * Gin GAONA RDOB: 2 (83 yo F)Acc No.[id number]:11/25/2023 Progress Note Patient:SAHRA Gin Lizzy Provider:?Claudette Madera DPM :1940???Age:83 Y???Sex:Female D ate:11/25/2023 Address:[address] [place], [place] [id number] Pcp:Yaneth Morataya MD Subjective: * Chief Complaints: * ??? * Medical History:? Objective: * Vitals:? Assessment: Plan: * Treatment: * Images: * The named appointment provid er may or may not be the originator of this progress note, and it is not deemed complete until electronically signed by the appointment provider. Sign off status: Pending * Provider:?Claudette Madera DPM Date:?04/2024 Generated for Print[employer] dev/Brenda/eTransmitting on:?06/29/2024 10:49 AM EST
--- OUTSIDE RECORDS SUMMARY | 2024-06-29 10:50 | XMS_ITS | Patient Health Record ---
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) Active confirmed Problem [id number] Skin ulcer of to e of right foot with fat layer exposed (L97.512) Active confirmed Vital Signs Blood pressure diastolic 70 mm Hg 08/26/2023 Height 5 ft 4 in in 08/26/2023 Blood pressure systolic 130 mm Hg 08/26/2023 Weight 160 lbs 08/26/2023 BMI 27.46 kg/m2 08/26/2023 Encounters Encounter Location Date Provider Diagnosis [facility] [address] [address] 08/26/2023 Claudette Madera Tinea unguium B35.1 ; Tinea pedis of both feet B35.3 ; Pain in right toe(s) M79.674 and Pain in left toe(s) M79.[address] [facility] [address] 11/22/2023 Claudette Madera Assessments Encounter Date Diagnosis [...] Date Coverage End Date [employer] [address] [place] [address] [phone] [id number] Gin Gaona Self - patient is the insured Medical (General) History Medical History History ICD Code Anxiety Back,Hip,and Knee pain Cataracts A fib High blood pressure Measles Mumps Chicken pox Surgical History Surgery Date(Month/Year) cataract surgery Hospitalization History Reason Date(Month/Year) [facility] potential heart attack 12/05
--- OUTSIDE RECORDS SUMMARY | 2024-06-29 10:50 | XMS_ITS ---
Author Organization [facility] Address [address] [place] [address] Care Team Providers Care Document Processor Name Role Phone Yaneth Morataya MD Primary Care Provider Claudette Chi [phone] REASON FOR VISIT cx 11/24 Encounters Encounter Location Date Provider Diagnosis [facility] [address] [place] [address] 11/22/2023 Claudette Madera Plan Of Treatment No Information Progress Notes * Gin GAONA RDOB: 2 (83 yo F)Acc No.[id number]:11/22/2023 Patient:?Gin Gaona :1940???Age:83 Y???Sex:Female Address:[address] [place], [address] * true * Date:? Generated for Angeli dev/Brenda/eTransmitting on:?06/29/2024 10:50 AM EST
== END 2024-06-29 11:00 | disposition home or self-care (01) ==
PROVIDERS: PCP Internal Medicine; Visit Provider Internal Medicine
DX: I48.91 Unspecified atrial fibrillation (principal); Z00.00 Encounter for general adult medical examination without abnormal findings; I10 Essential (primary) hypertension

== ENCOUNTER → 2024-06-29 10:04 | Outpatient (BNVA) | payer MEDICARE, SELFPAY | PROVIDERS: PCP Internal Medicine; Visit Provider Internal Medicine | DX: Z00.00 Encounter for general adult medical examination without abnormal findings (principal); I10 Essential (primary) hypertension; I48.91 Unspecified atrial fibrillation | CPT/HCPCS: 96127; 99397 ==

== ENCOUNTER 2025-01-09 12:43 | Outpatient (AMB) | payer MEDICARE, SELFPAY ==
--- OUTSIDE RECORDS SUMMARY | 2023-07-29 09:15 | XMS_ITS ---
Author Organization [facility] Address [address] [place] [address] Care Team Providers Care Armature And Rotor Winder Name Role Phone Rafia NIETO, Yaneth Primary Care Provider Claudette Chi [phone] Deng Encounters Encounter Location Date Provider Diagnosis [address] [address] 07/29/2023 Claudette Madera Plan Of Treatment No Information Progress Notes * Gin GAONA RDOB: [birth year] (84 yo F)Acc No.[id number]:07/29/2023 Progress Note Patient: Gin MCGREGOR Provider: Amna Madera DPM :1940 A ge:82 Y S ex:Female Date:07/29/2023 Address:[address] [place], [place] [id number] Pcp:Yaneth Morataya MD Subjective: * Chief Complaints: * [address] Deng. * Medical History: Objective: * Vitals: Assessment: Plan: * Treatment: * Images: * The named appointment provid er may or may not be the originator of this progress note, and it is not deemed complete until electronically signed by the appointment provider. Sign off status: Pending * Provider: mAna Madera DPM Date: 0 07/29/2023 Generated for Printi ng/Faxing/eTransmitting on: 0 01/09/2025 01:06 PM EDT
--- OUTSIDE RECORDS SUMMARY | 2023-11-25 09:30 | XMS_ITS ---
Author Organization [facility] Address [address] [place] [address] Care Team Providers Care Egg Caser Name Role Phone Rafia NIETO, Yaneth Primary Care Provider Claudette Chi [phone] Encounters Encounter Location Date Provider Diagnosis [facility] [address] [place] [address] 11/25/2023 Claudette Madera Plan Of Treatment No Information Progress Notes * Gin GAONA RDOB: [birth year] (84 yo F)Acc No.[id number]:11/25/2023 Progress Note Patient: Gin MCGREGOR Provider: Amna Madera DPM :1940 A ge:83 Y S ex:Female Date:11/25/2023 Address:[address] [place], [place] [id number] Pcp:aYneth Morataya MD Subjective: * Chief Complaints: * * Medical History: Objective: * Vitals: Assessment: Plan: * Treatment: * Images: * The named appointment provid er may or may not be the originator of this progress note, and it is not deemed complete until electronically signed by the appointment provider. Sign off status: Pending * Provider: Amna Madera DPM Date: 11/25/2023 Generated for Printi dev/Famayrag/eTransmitting on: 01/09/2025 01:06 PM EDT
[2025-01-09 13:06] VITALS: BP 140/68; PULSE 68; RESP 16; TEMP 36.9; O2SAT 96; BMI 28.0
--- NOTE | 2025-01-09 13:06 | A.OFFPC_ITS ---
Vital Signs 01/09/25 13:06 Height 5 ft 4 in Weight 163 lb BMI 28.0 BP 140/68 H Blood Pressure Location Lt brachial Position Sitting Respiration 16 Pulse 68 Pulse Source Pulse Oximeter Temp 98.5 F Temp Source Oral Pulse Oximetry (%) 96 Oxygen Delivery Method Room Air Intake Visit Reasons: f/u [employer] Required: No Accompanied by: Self / Same As Patient Allergies penicillin G Allergy (Mild, Verified 01/09/25 13:25) mouth sores Medication List - Last Reconciled 01/09/25 by Yaneth Morataya MD apixaban (Eliquis) 5 mg PO BID atorvastatin (Lipitor) 40 mg PO BEDTIME cholecalciferol (vitamin D3) 50 mcg PO DAILY sertraline 100 mg PO DAILY verapamil ER 180 mg PO DAILY Tobacco use date assessed: 01/09/25 Fall risk assessment: 1 Fall in past year Last assessed Fall Risk: 01/09/25 Dental Screening Dental Screen Date: 01/09/25 Did you have a dental visit in the last 12 months?: No Did you have a dental problem in the last 6 months where you did not have access to dental care?: No Was dental information given to patient?: No (pt has dentures) HPI f/u HPI Details Patient presents for the follow-up on hypertension hyperlipidemia paroxysmal AFib and chronic anxiety stable on current medications [facility] Medical History (Updated 01/09/25 @ 13:46 by Yaneth Morataya MD) Lymphedema of left lower extremity Lymphedema of right lower extremity Vitamin D deficiency Hyperlipidemia A-fib HTN (hypertension) Surgical History S/P cataract surgery Family History Father No problems noted. Mother No problems noted. Social History Household Members Other:: , lives alone, 2 daughters (in [facility]), Housing: House Alcohol intake: current Alcohol intake frequency: former alcohol drinker Patient Tobacco Use Status: Former Tobacco user Years Smoked: 40 e-Cigarette/Vaping Use: Never Used service: No Current occupational status: retired Current occupational exposures/hazards: No Cognitive needs: No Hearing needs: No Vision needs: Yes Questionnaire PHQ-9 Over the last 2 weeks, how often have you been bothered by any of the following problems? 1. Little interest or pleasure in doing things: not at all 2. Feeling down, depressed, or hopeless: not at all 3. Trouble falling or staying asleep, or sleeping too much: not at all 4. Feeling tired or having little energy: not at all 5. Poor appetite or overeating: not at all 6. Feeling bad about yourself - or that you are a failure or have let yourself or your family down: not at all 7. Trouble concentrating on things, such as reading the newspaper or watching television: not at all 8. Moving or speaking so slowly that other people could have noticed. Or the opposite - being so fidgety or restless that you have been moving around a lot more than usual: not at all 9. Thoughts that you would be better off or of hurting yourself in some way: not at all Total score: 0 Depression Screening Interpretation: Negative Depression Screening Done: Yes 58990 - PHQ-9 Billing: Yes Source: Developed by Drs. Ramin Avina, Lotus Huynh, Sanchez Delaney and colleagues, with an educational aicha from [employer]. Thrive Questionnaire Date Thrive assessed: 06/22/24 I am a: Patient What is your living situation today?: I have a steady place to live Within the past 12 months, did the food you bought not last and you didn't have the money to get more?: Never true Within the past 12 months, did you worry whether your food would run out before you got money to buy more?: Never true Do you have trouble paying for medicines?: No Do you have trouble getting transportation to medical appointments?: Yes Do you have trouble paying your heating and electricity bill?: No Do you have trouble taking care of your child, family member or friend?: No Do you have trouble with day-to-day activities such as bathing, preparing meals, shopping, managing finances, etc.?: No Are you currently unemployed and looking for a job?: No Are you interested in more education?: No Please select the resources that you would like help with: Transportation Currently or been in a relationship where the following occur: No concerns reported THRIVE Score: 1 ROMMEL-7 AMB Questionnaire ROMMEL-7 Feeling nervous, anxious, or on edge: 0 = Not at all Not being able to stop or control worryin = Not at all Worrying too much about different things: 0 = Not at all Trouble relaxin = Not at all Being so restless that it is hard to sit still: 0 = Not at all Becoming easily annoyed or irritable: 0 = Not at all Feeling afraid as if something awful might happen: 0 = Not at all Total ROMMEL-7 score (0-4 normal; 5-9 mild; 10-14 moderate; 15-21 severe): 0 Source: Developed by Drs. Ramin Avina, Lotus Huynh, Sanchez Delaney and colleagues, with an educational aicha from [employer]. ROMMEL-7 Assessment Billing ROMMEL-7 Assessment Tool: ROMMEL-7 Assessment 41014 Review of Systems Const All systems reviewed & are unremarkable except as noted in HPI and below ENT Reports no additional complaints Card Reports no additional complaints Resp Reports no additional complaints GI Reports no additional complaints Reports no additional complaints Physical exam (Primary Care) Vital Signs: Last Vital Signs Temp 98.5 F 01/09/25 13:06 Pulse 68 01/09/25 13:06 Resp 16 01/09/25 13:06 BP 140/68 H 01/09/25 13:06 Pulse Ox 96 01/09/25 13:06 Oxygen Delivery Method Room Air 01/09/25 13:06 BMI result Body Mass Index 28.0 Tobacco/Smoking Status: Tobacco use Status Tobacco use date assessed 01/09/25 01/09/25 13:07 Patient Tobacco Use Status Former Tobacco user 01/09/25 13:07 e-Cigarette/Vaping Use Never Used 01/09/25 13:07 PHQ-9: PHQ-9 Score PHQ-9: Total score 0 01/09/25 13:29 Depression Screening Interpretation: Negative Thrive Assessment: Date of Thrive Assessment Date Thrive assessed 06/22/24 01/09/25 13:07 Currently or been in a relationship where the following occur: No concerns reported Const General: no acute distress HENMT Head: Yes normal to inspection Neck Neck: Yes supple Resp Effort & Inspection: normal respiratory effort Auscultation: clear to auscultation bilaterally Cardio Rhythm: regular rhythm Heart sounds: S1 normal heart sound present and S2 normal heart sound present GI Inspection: Yes normal to inspection Palpation (GI): Soft to palpation Percussion: Yes normal to percussion Extrem Other: 3+ nonpitting lower extremities edema Coding Level of Care Code Est Pt Level 4 (66287) Diagnoses Lymphedema of right lower extremity I89.0 Lymphedema of left lower extremity I89.0 HTN (hypertension) I10 Hyperlipidemia E78.5 A-fib I48.91 Additional Codes ROMMEL-7 Assessment Billing - ROMMEL-7 Assessment Tool: ROMMEL-7 Assessment 77969 ([id number]) PHQ-9 - 66862 - PHQ-9 Billing: Yes ([id number]) Assessment & Plan Assessment & Plan (1) Lymphedema of right lower extremity: Code(s): I89.0 - Lymphedema, not elsewhere classified Category: Medical Plan: Continue compression stockings and elevation (2) Lymphedema of left lower extremity: Code(s): I89.0 - Lymphedema, not elsewhere classified Category: Medical Plan: Controlled with compression stockings (3) HTN (hypertension): Code(s): I10 - Essential (primary) hypertension Category: Medical Plan: Continue verapamil (4) Hyperlipidemia: Code(s): E78.5 - Hyperlipidemia, unspecified Category: Medical Plan: Continue statin (5) A-fib: Comment: x 30 yrs, hospitalized at [facility] 12/05 and f[facility]u with [facility] 01/05, had Echo and Holter Code(s): I48.91 - Unspecified atrial fibrillation Category: Medical Plan: Continue Eliquis and verapamil for rate control Medications: Refilled atorvastatin (Lipitor) 40 mg PO BEDTIME 90 tabs 3RF
--- OUTSIDE RECORDS SUMMARY | 2025-01-09 13:07 | XMS_ITS | Patient Health Record ---
Author Organization [facility] [place] [address] Care Team Providers Care Slot Supervisor Name Role Phone Out of Area, Provider Primary Care Provider Unav ailable Allergies Allergen (clinical drug ingredient) Drug/Non Drug Allergy documented on EMR Reaction Allergy Type Onset Date Status THIMEROSAL Date: 04/13/2016 Drug Allergy Active PENICILLIN HIVES Severity: Severe Date: 10/29/2008 Drug Allergy Active Reason For Referral No Information Medications Medication SIG (Take, Route, Frequency, Duration) Notes Start Date End Date Status Atenolol 50 MG 1 tablet Orally Once a day; Duration: 90 days Active Vitamin D 1000 UNIT 1 tablet Orally Once a day; Duration: 30 day(s) 03/20/2021 Active Cranberry Extract 250 MG 2 tablets Orall y Once a day Active Verapamil HCl ER 180 MG 1 tablet Orally Once a day; Duration: 90 days Active Eliquis 5 MG 1 tablet Orally Twic e a day; Duration: 90 days Active Sertraline HCl 100 MG 1 tablet Orally On ce a day; Duration: 90 days Active Atorvastatin Calcium 40 MG 1 tablet Oral ly Once a day; Duration: 90 days Active Immunizations Vaccine Route Administration Date Status Comme nts DTaP (Private Supply) IM Intramuscular 08/16/2017 Administ ered Influenza High Dose Outside Source Unknown 02/13/2019 Administered Influenza, High Dose (Private Supply) IM Intramuscular 01/24/2020 Administered Pfizer Covid Booster (Adults) Unknown 02/25/2021 Administered Pfizer Covid Booster (Adults) Unknown 09/16/2021 Administered Pfizer Covid Booster (Adults) Unknown 01/27/2022 Administered Pfizer Covid Vaccine # 2 Unknown 07/20/2020 Administere d Pfizer Covid Vaccine # 1 Unknown 06/29/2020 Administere d Pneumovax-Pneumococcal polysaccharide PPV23 (Private) IM Intramuscular 03/23/2018 Administered Prevnar Unknown 02/04/2015 Administered Tdap Unknown 01/29/2013 Administered Social History Tobacco Use: Social History Observation Description Date Details (start date - stop date) Former Smoker NA - NA Tobacco Use/Smoking Question Answer Notes Are you a former smoker How long has it been since you last smoked? > 10 years Alcohol Screen (Audit-C) Question Answer Notes Did you have a drink containing alcohol in the p ast year? No Points 0 Interpretation Negative Section Notes: Former tobacco and alcohol abuse - quit both a number of years ago and continues to go to AA. 1.5ppd x 40 yrs, quit at 64 yo. No former drug use a year ago. Has a daughter in [facility] and a group of friends. Former tobacco and alcohol abuse - quit both a number of years ago and continues to go to AA. 1.5ppd x 40 yrs, quit at 64 yo. No former drug use a year ago. Has a daughter in [facility] and a group of friends. Former tobacco and alcohol abuse - quit both a number of years ago and continues to go to AA. 1.5ppd x 40 yrs, quit at 64 yo. No former drug use a year ago. Has a daughter in [facility] and a group of friends. Former tobacco and alcohol abuse - quit both a number of years ago and continues to go to AA. 1.5ppd x 40 yrs, quit at 64 yo. No former drug use a year ago. Has a daughter in [facility] and a group of friends. Former tobacco and alcohol abuse - quit both a number of years ago and continues to go to AA. 1.5ppd x 40 yrs, quit at 64 yo. No former drug use a year ago. Has a daughter in [facility] and a group of friends. 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 a year ago. Has a daughter in [facility] and a group of friends. Former tobacco and alcohol abuse - quit both a number of years ago and continues to go to AA. 1.5ppd x 40 yrs, quit at 64 yo. No former drug use a year ago. Has a daughter in [facility] and a group of friends. Former tobacco and alcohol abuse - quit both a number of years ago and continues to go to AA. 1.5ppd x 40 yrs, quit at 64 yo. No former drug use a year ago. Has a daughter in [place] and a group of friends. 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 1.5ppd x 40 yrs, quit at 64 yo. No former drug use a year ago. Has a daughter in [place] and a group of friends. Former tobacco and alcohol abuse - quit both a number of years ago and continues to go to AA. a year ago. Has a daughter in [facility] and a group of friends. Former tobacco and alcohol abuse - quit both a number of years ago and continues to go to AA. a year ago. Has a daughter in [facility] and a group of friends. Former tobacco and alcohol abuse - quit both a number of years ago and continues to go to AA. 1.5ppd x 40 yrs, quit at 64 yo. No former drug use a year ago. Has a daughter in [facility] and a group of friends. Former tobacco and alcohol abuse - quit both a number of years ago and continues to go to AA. a year ago. Has a daughter in [facility] and a group of friends. Former tobacco and alcohol abuse - quit both a number of years ago and continues to go to AA. 1.5ppd x 40 yrs, quit at 64 yo. No former drug use a year ago. Has a daughter in [place] and a group of friends. Former tobacco and alcohol abuse - quit both a number of years ago and continues to go to AA. 1.5ppd x 40 yrs, quit at 64 yo. No former drug use a year ago. Has a daughter in [facility] and a group of friends. Former tobacco and alcohol abuse - quit both a number of years ago and continues to go to AA. 1.5ppd x 40 yrs, quit at 64 yo. No former drug use a year ago. Has a daughter in [place] and a group of friends. Former tobacco and alcohol abuse - quit both a number of years ago and continues to go to AA. 1.5ppd x 40 yrs, quit at 64 yo. No former drug use a year ago. Has a daughter in [facility] and a group of friends. Former tobacco and alcohol abuse - quit both a number of years ago and continues to go to . 1.5ppd x 40 yrs, quit at 64 yo. No former drug use a year ago. Has a daughter in [place] and a group of friends. 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 No smoking Problems Problem Type SNOMED Code ICD Code Onset Dates Problem Status W/U Status Risk Notes Problem History of alcoholism (136362823) History of alcoholism (F10.21) Active confirmed Problem Body mass index 30+ - obesity (108517571) BMI 30.0-30.9,adult (Z68.30) Active confirmed Problem Crepitus of left knee joint (finding) (2842960923189016 1) Crepitus of joint of left knee (M23.8X2) Active confirmed Problem Crepitus of right knee joint (finding) (9450184100323140 2) Crepitus of joint of right knee (M23.8X1) Active confirmed Problem Endometrium thickened (finding) (231994989) Endometrial thickening on ultrasound (R93.89) Active confirmed Problem Non-rheumatic mitral regurgitation (664054235) Nonrheumatic mitral valve regurgitation (I34.0) Active confirmed Problem Tricuspid incompetence, non-rheumatic (769255393) Nonrheumatic tricuspid valve regurgitation (I36.1) Active confirmed Problem SI - Stress incontinence (70788520) Stress incontinence (N39.3) Active confirmed Problem Dyslipidemia (849486860) Dyslipidemia (E78.5) Active confirmed Problem Urgent desire to urinate (91979174) Urinary urgency (R39.15) Active confirmed Problem Recurrent urinary tract infection (883011288) Recurrent UTI (N39.0) Active confirmed Problem Anxiety (87756644) Anxiety (F41.9) Active confirmed Problem Essential hypertension (71996163) Essential (primary) hypertension (I10) Active confirmed Problem Mixed hyperlipidemia (631803546) Mixed hyperlipidemia (E78.2) Active confirmed Problem Paroxysmal atrial fibrillation (792149444) Paroxysmal atrial fibrillation (I48.0) Active confirmed (Deepak-PP ) Plan Of Treatment Future Test Test Name Order Date CT UROGRAM [id number] 10/31/2019 CBC AUTO DIFF (REFLEX TO MANUAL) 023 Comprehensive Metabolic Panel(CMP) 07/08 MAMMO 3D CANDY BILAT SCREEN 07/08/2022 Lipid Profile 07/08/2022 Insurance Providers Payer Name Payer Address Payer Phone Subscriber Number Group Number Insured Name Patient Relationship to Insured Coverage Start Date Coverage End Date MRP AETNA MEDICARE ADVANTAGE AETNA MEDICARE REPLACEMENT [address] [place] [id number] Gin Ferraro Self - patient is the insured Medical (General) History Medical History History ICD Code Dyslipidemia Paroxysmal atrial fibrillation IBS Olecranon bursitis Shingles Surgical History Surgery Date(Month/Year) Hospitalization History Reason Date(Month/Year) Diarrhea@-[facility]
--- OUTSIDE RECORDS SUMMARY | 2025-01-09 13:07 | XMS_ITS | Patient Health Record ---
Author Organization [facility] Address [address] [place] [address] Care Team Providers Care Support Service Tech Name Role Phone Yaneth Morataya MD Primary Care Provider Claudette Chi Unavailable [phone] Allergies Allergen (clinical drug ingredient) Drug/Non Drug [...] 100 MG 1 capsule Orally every 12 hrs; Duration: 7 days 12/07/2022 Not-Taking Atenolol 50 MG 1 tablet Orally Once a day Not-Taking Cipro 500 MG 1 tablet Orally ever y 12 hrs; Duration: 5 days 12/13/2022 Not-Taking Social History Tobacco [...] Problem Status W/U Status Risk Notes Problem Bilateral atherosclerosis of arteries of lower limbs (disorder) (40156099268457423 ) Atherosclerosis of artery of both lower extremities (I70.203) Active confirmed Problem Skin ulcer of to e of right foot with fat layer exposed (L97.512) Active confirmed Plan Of Treatment Pending Test Test Name Order Date X ray : Foot, right 3V 12/07/2022 Insurance Providers Payer Name Payer Address Payer Phone Subscriber Number Group Number Insured Name Patient Relationship to Insured Coverage Start Date Coverage End Date A[employer] [address] [place] [address] [id number] Gin Gaona Self - patient is the insured Medical (General) History Medical History History ICD Code Anxiety Back,Hip,and Knee pain Cataracts A fib High blood pressure Measles Mumps Chicken pox Surgical History Surgery Date(Month/Year) cataract surgery Hospitalization History Reason Date(Month/Year) [facility] potential heart attack 12/05
== END 2025-01-09 13:44 | disposition home or self-care (01) ==
LOC: HO.HMCC 12:43
PROVIDERS: PCP Internal Medicine; Visit Provider Internal Medicine
DX: I89.0 Lymphedema, not elsewhere classified (principal); I10 Essential (primary) hypertension; E78.5 Hyperlipidemia, unspecified; I48.91 Unspecified atrial fibrillation

== ENCOUNTER → 2025-01-09 12:43 | Outpatient (BNVA) | payer MEDICARE, SELFPAY | PROVIDERS: PCP Internal Medicine; Visit Provider Internal Medicine | DX: I10 Essential (primary) hypertension (principal); E78.5 Hyperlipidemia, unspecified; I48.91 Unspecified atrial fibrillation; F41.9 Anxiety disorder, unspecified; I89.0 Lymphedema, not elsewhere classified | CPT/HCPCS: 96127; 99212 ==

== ENCOUNTER 2025-03-15 09:02 | Outpatient (REF) | payer MEDICARE, SELFPAY ==
[2025-03-15 15:17] LABS: Resp Syncy Virus RNA Qual PCR NEGATIVE (Negative); SARS COV2 PCR INHOUSE NEGATIVE (Negative)
== END 2025-03-15 09:03 | disposition home or self-care (01) ==
LOC: HO.LAB 09:02
PROVIDERS: PCP Internal Medicine; Visit Provider Physician Assistant
DX: J06.9 Acute upper respiratory infection, unspecified (principal); I10 Essential (primary) hypertension; Z87.891 Personal history of nicotine dependence
CPT/HCPCS: 87637; 87880; 99212

== ENCOUNTER 2025-03-15 09:02 | Outpatient (AMB) | payer MEDICARE, SELFPAY ==
--- OUTSIDE RECORDS SUMMARY | 2023-11-25 09:30 | XMS_ITS ---
Author Organization [facility] Address [address] [place] [address] Care Team Providers Care Stage Set Designer Name Role Phone Rafia NIETO, Yaneth Primary Care Provider Claudette Chi [phone] Encounters Encounter Location Date Provider Diagnosis [facility] [address] [place] [address] 11/25/2023 Claudette Madera Plan Of Treatment No Information Progress Notes * Gin GAONA RDOB: [birth year] (84 yo F)Acc No.[id number]:11/25/2023 Progress Note Patient: Gin MCGREGOR Provider: Amna Madera DPM :1940 A ge:83 Y S ex:Female Date:11/25/2023 Address:[address] [place], [place] [id number] Pcp:Yaneth Morataya MD Subjective: * Chief Complaints: * * Medical History: Objective: * Vitals: Assessment: Plan: * Treatment: * Images: * The named appointment provid er may or may not be the originator of this progress note, and it is not deemed complete until electronically signed by the appointment provider. Sign off status: Pending * Provider: Amna Madera DPM Date: 0 11/25/2023 Generated for Printi ng/Famayrag/eTransmitting on: 1 09:37 AM EDT
[2025-03-15 09:35] VITALS: BP 146/82; PULSE 73; TEMP 37.1; O2SAT 96; BMI 27.5
--- NOTE | 2025-03-15 09:35 | AM.OFFWIN_ITS ---
Intake Vital Signs 03/15/25 09:35 Height 5 ft 4 in Weight 160 lb BMI 27.5 BP 146/82 H Blood Pressure Location Lt brachial Position Sitting Pulse 73 Pulse Source Pulse Oximeter Temp 98.8 F Temp Source Oral Pulse Oximetry (%) 96 Oxygen Delivery Method Room Air Intake Visit Reasons: EP Sore throat Intake Note: pt presents with severe sore throat, head pressure and chest congestion-negative covid tests at home Patient Tobacco Use Status: Former Tobacco user Allergies penicillin G Allergy (Mild, Verified 03/15/25 09:40) mouth sores Do you need a note to return to daycare/school/sports/work: No HPI HPI Comments History of Present Illness Details History - The patient is an 84-year-old female p resenting with a sore throat and cough. - The sore throat began approximately fi ve days ago and is described as severe, unlike anything experienced before. - The patient reports associated symptom s of congestion and a mild fever of 99?F, which she considers high for her. - The patient denies ear pain or sinus p ain but describes a sensation of heaviness due to congestion. - She has not taken any medications for these symptoms and has not previously tried allergy medications. - The patient has a history of chronic c ongestion, possibly due to allergies, but this episode is noted to be worse than usual. - The patient denies shortness of breath or wheezing and reports no significant cough at night. - Blood pressure was noted to be slightl y elevated during the visit. Review of Systems - General: Reports mild fever of 99?F, d enies significant fatigue. - Respiratory: Reports cough and congest ion, denies dyspnea or wheezing. - ENT: Reports severe sore throat, denie s ear pain or sinus pain. All systems reviewed and are unremarkable except as noted in HPI Physical Exam General: Cooperative, healthy appearing, comfortable and no acute distress Orientation/consciousness: Patient oriented x3 Limitations: No limitations Head: Normal to inspection Ears: Hearing grossly normal bilaterally, external ears normal, EAC's normal bilaterally and TM's normal bilaterally Nose: Normal external nose present, Normal nares present and No nasal discharge present Face and sinus: Normal facial exam and sinuses nontender Mouth: Normal oral and palatal mucosa present and moist mucous membranes Throat: tonsils normal, no exudates, uvula midline, posterior oropharynx erythema Eyes: Appearance normal, both eyes and all related structures Neck: Normal visual inspection, full ROM Respiratory: Clear to auscultation bilaterally. Normal respiratory effort, able to speak in complete sentences, not actively coughing, no respiratory distress, not tachypneic, no tripod positioning and no use of accessory muscles Cardiovascular: Regular rate and rhythm. Normal S1 and S2 Skin: No rashes or lesions noted Neuro: Patient oriented x3 Extremities: Normal to inspection and Yes no clubbing, cyanosis or edema PFSH Medical History (Updated 01/09/25 @ 13:46 by Yaneth Morataya MD) Lymphedema of left lower extremity Lymphedema of right lower extremity Vitamin D deficiency Hyperlipidemia A-fib HTN (hypertension) Surgical History S/P cataract surgery Family History Father No problems noted. Mother No problems noted. Social History Household Members Other:: , lives alone, 2 daughters (in [facility]), Housing: House Alcohol intake: current Alcohol intake frequency: former alcohol drinker Patient Tobacco Use Status: Former Tobacco user Years Smoked: 40 e-Cigarette/Vaping Use: Never Used service: No Current occupational status: retired Current occupational exposures/hazards: No Cognitive needs: No Hearing needs: No Vision needs: Yes Physical Exam Vital Signs: Last Vital Signs Temp 98.8 F 03/15/25 09:35 Pulse 73 03/15/25 09:35 BP 146/82 H 03/15/25 09:35 Pulse Ox 96 03/15/25 09:35 Oxygen Delivery Method Room Air 03/15/25 09:35 BMI result Body Mass Index 27.5 Results AMB Rapid Strep AMB Rapid Strep Negative Last Edit by Azalea Dinh MA on 03/15/25 09:48 Results Reviewed Results Reviewed: Laboratory Last Values Strep Scn Rapid Clinic Negative 03/15/25 09:37 Assessment & Plan Assessment & Plan (1) URI, acute: Code(s): J06.9 - Acute upper respiratory infection, unspecified Plan: Plan Patient was informed and verbally consented to the use of an ambient scribe for clinic note documentation during this visit. Viral Upper Respiratory Infection - VSS, pt well appearing and PE unremarkable. - Plan includes symptomatic treatment with rest, hydration, and xkrf-gar-ihksind medications such as Coricidin for those with hypertension. - Recommended hot tea with honey for throat relief and advised that symptoms may last up to three weeks. - COVID-19 and strep tests were conducted; results pending. - Suggested trial of a daily allergy pill to alleviate symptoms, despite not being used for allergies. - Blood pressure was slightly elevated, possibly due to illness; advised to monitor and manage with appropriate medications. Orders: Orders AMB Rapid Strep Screen Today Natacha Hernandez PA-C Z13.9 - Encounter for screening, unspecified SARS-CoV2/FLU/RSV Today Jannet Amaya PA-C R09.89 - Other specified symptoms and signs involving the circulatory and respiratory systems Coding Level of Care Code Est Pt Level 3 (61914) Diagnoses URI, acute J06.9
--- OUTSIDE RECORDS SUMMARY | 2025-03-15 09:38 | XMS_ITS | Patient Health Record ---
Author Organization [facility] Address [address] [place] [address] Care Team Providers Care Maintenance Advisor Name Role Phone Yaneth Morataya MD Primary Care Provider Claudette Chi Unavailable [phone] Allergies Allergen (clinical drug ingredient) Drug/Non Drug [...] atherosclerosis of arteries of lower limbs (disorder) (07033542575512680 ) Atherosclerosis of artery of both lower [...] Date Coverage End Date A[employer] [address] [place] [address] [id number] Gin Gaona Self - patient is the insured Medical (General) History Medical History History ICD Code Anxiety Back,Hip,and Knee pain Cataracts A fib High blood pressure Measles Mumps Chicken pox Surgical History Surgery Date(Month/Year) cataract surgery Hospitalization History Reason Date(Month/Year) [facility] potential heart attack 12/05
--- OUTSIDE RECORDS SUMMARY | 2025-03-15 09:38 | XMS_ITS | Patient Health Record ---
Author Organization [facility] [place] [address] Care Team Providers Care Carbide Die Maker Name Role Phone Out of Area, Provider [...] a year ago. Has a daughter in [facility] and a group of friends. Former tobacco and alcohol abuse - quit both a number of years ago and continues to go to AA. 1.5ppd x 40 yrs, quit at 64 yo. No former drug use a year ago. Has a daughter in [facility] and a group of friends. Former tobacco and alcohol abuse - quit both a number of years ago and continues to go to AA. a year ago. Has a daughter in [facility] and a group of friends. 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 1.5ppd x 40 yrs, quit at 64 yo. No former drug use a year ago. Has a daughter in [facility] and a group of friends. Former tobacco and alcohol abuse - quit both a number of years ago and continues to go to AA. a year ago. Has a daughter in [facility] and a group of friends. Former tobacco and alcohol abuse - quit both a number of years ago and continues to go to AA. a year ago. Has a daughter in [facility] and a group of friends. Former tobacco and alcohol abuse - quit both a number of years ago and continues to go to AA. 1.5ppd x 40 yrs, quit at 64 yo. No former drug use a year ago. Has a daughter in [facility] and a group of friends. Former tobacco [...] a year ago. Has a daughter in [facility] and a group of friends. Former tobacco and alcohol abuse - quit both a number of years ago and continues to go to AA. 1.5ppd x 40 yrs, quit at 64 yo. No former drug use a year ago. Has a daughter in [facility] and a group of friends. Former tobacco [...] a year ago. Has a daughter in [facility] and a group of friends. Former tobacco [...] a year ago. Has a daughter in [facility] and a group of friends. Former tobacco and alcohol abuse - quit both a number of years ago and continues to go to . 1.5ppd x 40 yrs, quit at 64 yo. No former drug use a year ago. Has a daughter in [place] and a group of friends. Problems Problem Type SNOMED Code ICD Code Onset Dates Problem Status W/U Status Risk Notes Problem Mixed hyperlipidemia (205245267) Mixed hyperlipidemia (E78.2) Active confirmed Problem Recurrent urinary tract infection (581454914) Recurrent UTI (N39.0) Active confirmed Problem Urgent desire to urinate (82574944) Urinary urgency (R39.15) Active confirmed Problem History of alcoholism (816085448) History of alcoholism (F10.21) Active confirmed Problem Body mass index 30+ - obesity (021935101) BMI 30.0-30.9,adult (Z68.30) Active confirmed Problem Crepitus of left knee joint (finding) (0955123865856455 1) Crepitus of joint of left knee (M23.8X2) Active confirmed Problem Crepitus of right knee joint (finding) (9592500908362049 2) Crepitus of joint of right knee (M23.8X1) Active confirmed Problem Non-rheumatic mitral regurgitation (356091002) Nonrheumatic mitral valve regurgitation (I34.0) Active confirmed Problem Tricuspid incompetence, non-rheumatic (572390262) Nonrheumatic tricuspid valve regurgitation (I36.1) Active confirmed Problem SI - Stress incontinence (40017025) Stress incontinence (N39.3) Active confirmed Problem Dyslipidemia (279861209) Dyslipidemia (E78.5) Active confirmed Problem Anxiety (70800922) Anxiety (F41.9) Active confirmed Problem Essential hypertension (91376767) Essential (primary) hypertension (I10) Active confirmed Problem Paroxysmal atrial fibrillation (928413707) Paroxysmal atrial fibrillation (I48.0) Active confirmed (Deepak-PP ) Problem Endometrium thickened (finding) (585820747) Endometrial thickening on ultrasound (R93.89) Active confirmed Plan Of Treatment Future Test Test Name Order Date CT UROGRAM [id number] 10/31/2019 CBC AUTO DIFF (REFLEX TO MANUAL) 023 Comprehensive Metabolic Panel(CMP) 07/08 MAMMO 3D CANDY BILAT SCREEN 07/08/2022 Lipid Profile 07/08/2022 Insurance Providers Payer Name Payer Address Payer Phone Subscriber Number Group Number Insured Name Patient Relationship to Insured Coverage Start Date Coverage End Date MRP AETNA MEDICARE ADVANTAGE AETNA MEDICARE REPLACEMENT [address] [place] [id number] Gin Ferraro Self - patient is the insured Medical (General) History Medical History History ICD Code Dyslipidemia Paroxysmal atrial fibrillation IBS Olecranon bursitis Shingles Surgical History Surgery Date(Month/Year) Hospitalization History Reason Date(Month/Year) Diarrhea@-[place]
== END 2025-03-15 10:06 | disposition home or self-care (01) ==
PROVIDERS: PCP Internal Medicine; Visit Provider Physician Assistant
DX: Z13.9 Encounter for screening, unspecified (principal); J06.9 Acute upper respiratory infection, unspecified